=== PATIENT | female | born 1990 | race Caucasian/White ===

== ENCOUNTER 2022-03-24 14:32 | Emergency (ER) | payer BC ==
[~2022-03-24] VITALS: Ht 149.9 cm; Wt 49.9 kg
--- NOTE | 2022-03-24 15:36 | NUR ---
CALLED TO TRIAGE NO ANSWER
--- NOTE | 2022-03-24 16:30 | NUR ---
DR AHN W/ PT FOR EVAL
--- NOTE | 2022-03-24 16:44 | NUR ---
TECH AT BEDSIDE FOR EKG
--- NOTE | 2022-03-24 18:00 | NUR ---
Patient discharged to home in stable condition. Written and verbal after care instructions given. Patient verbalizes understanding of instruction.
[2022-03-24 18:33] VITALS: BP 120/70
== END 2022-03-24 18:34 | disposition home or self-care (01) ==
LOC: ER 14:37
DX: Z00.00 Encounter for general adult medical examination without abnormal findings (principal); U07.1 COVID-19
CPT/HCPCS: 36415; 71045-TC; 84132-TC